=== PATIENT | female | born 1995 | race Caucasian/White ===

== ENCOUNTER 2016-09-14 12:50 | Emergency (ER) | payer OTHER ==
[~2016-09-14] VITALS: Ht 162.6 cm; Wt 77.3 kg
[~2016-09-14 12:50] MED LIST: MEDR10TA9 PO
[2016-09-14 12:54] VITALS: BP 114/77; PULSE 86; RESP 12; O2SAT 98
--- NOTE | 2016-09-14 13:03 | ED.REPORT ---
HPI-Extremity Problem Upper Date of Service Sep 14, 2016 ED Provider: Doc,Ed MD History of Present Illness: fall on elbow this am at home, had prior surgery in June at [facility] [place] . c/o pain. ras is primary care. has had chronic pain with elbow. normally takes tylenol, no help. 02/26. pain is entire arm Nursing Notes Stated Complaint: LEFT ARM PAIN Chief Complaint: Extremity Trauma Nursing Notes Reviewed: Yes Allergies: Coded Allergies: No Known Allergies (Verified Allergy, Unknown, 03/11/16) Scheduled Medroxyprogesterone (Medroxyprogesterone) 10 Mg Tablet 10 MG PO DAILY General Time Seen by MD: 12:57 Chief Complaint Elbow injury left Hx Obtained From: Patient Onset Occurred: 1 - 4 hours ago Symptom Duration: Since onset Severity: Current: Pain level 8 out of 10 Past Medical History Past Medical History nephrolithiasis ovarian cysts Past Surgical History Denies Smoking History Current Every Day Smoker Social History Alcohol Use: Denies alcohol use Drug Use: THC Other Social History: Good social support, Local resident Occupation no work or school, lives with boyfriend 09/14/2016 Ambulatory Status Independent Review of Systems Basic Review of Systems Eyes: Vision NL, No discharge Respiratory: No shortness of breath, No cough, No wheeze Hematologic: No bleeding, No bruising Physical Exam Initial Vital Signs Vital Signs (First) Date Time Temp Pulse Resp B/P Pulse Ox O2 Delivery O2 Flow Rate FiO2 09/14/16 12:54 36.6 86 12 114/77 98 Room Air Initial VS: Reviewed, Vital signs normal General/Constitutional: Well-developed, Well-nourished Head / Eyes: Atraumatic, Normocephalic, PERRL ENT: Mucous membranes moist, Conjunctiva normal, No scleral icterus Neck: Supple, Non-tender, Full range of motion Respiratory: Breath sounds normal, Clear to auscultation, No respiratory distress Cardiovascular: Regular rate & rhythm, Heart sounds normal, Intact distal pulses Abdomen / GI: Soft, Non-tender, No guarding, No rebound, No distention Back: No CVA tenderness Lymphatic: No lymphadenopathy Lower Extremities: Vascular intact, Neuro intact, No swelling, No tenderness Skin: Warm, Dry, No cyanosis Neurologic: Alert, Oriented, Nonfocal Psychiatric: Mood/affect normal, Behavior normal, Normal thought content General/Constitutional: Awake, Alert, No acute distress, Well appearing, Well developed, Well hydrated, Well nourished, Cooperative, Not toxic appearing Respiratory / Chest: Atraumatic, Breath sounds NL, Breath sounds = bilat, No respiratory distress Cardiovascular: Heart rate NL, Regular rhythm, Heart sounds NL, No gallop well healed scar on left elbow, limited range of motion Interpretation & Diagnostics X-Ray Interpretation Xray Interpretation: INDICATIONS: fall pain TECHNIQUE: 3 views of the elbow were acquired. COMPARISON: [facility], CR, XR ELBOW 2VW LT, 07/07/2016, 14:23. FINDINGS: Bones: Previous comminuted fracture in June of 2016 of the distal humerus and the fracture of the ulna have been fixed with plates medially and laterally along the humerus and dorsally along the ulna. Multiple screws are present. No acute bony abnormality is seen. No abnormal lucency about any of the screws is seen. Soft tissues: No elbow joint effusion. No suspicious soft tissue calcifications. IMPRESSION: No acute abnormality is found in the left elbow. Previous extensive surgery is noted involving the distal humerus and the olecranon. Re-Eval/Medical Decision Med Decision/Clinical Course Discussed with Dr. Joy. Patient wanting opiates from elbow pain. X-ray is negative for acute fracture, no sign of cellulitis or compartment syndrome. Patient last seen at [facility] 08/02/2016 ( last day opiates provided per [employer]) patient states removed cast herself Discharge & Departure Impression: Primary Impression: Left elbow pain Disposition: Home Additional Instructions: The x-ray does not show any sign of bony damage. Please establish in primary care. They can work with you on the chronic pain and they can refer you to physical therapy. As you are having some chronic pain issues, gapabentin may be helpful. Please try it. I am sorry you fell. You can also use ice 15 minutes on and 15 minutes off. Must have a cloth barrier between the skin and the ice. Referrals: HUMPHREY VARGAS MD (PCP) EDSupervising Provider for APC: Scott Joy MD copies to: HUMPHREY VARGAS MD, Sue ARNP Sep 14, 2016 13:03
[2016-09-14] MEDS ORDERED: Lidocaine-Epi-Tetracaine Solution 3 mL Syringe TOPICAL ONE (13:15)
[2016-09-14] MEDS ORDERED: Ketorolac 30 mg/mL 2 mL Inj IM ONE (13:15)
--- NOTE | 2016-09-14 14:09 | DRSVH ---
PROCEDURE: X-RAY LEFT ELBOW COMPLETE, MINIMUM THREE VIEWS ([id number]) INDICATIONS: fall pain TECHNIQUE: 3 views of the elbow were acquired. COMPARISON: [facility], CR, XR ELBOW 2VW LT, 07/07/2016, 14:23. FINDINGS: Bones: Previous comminuted fracture in June of 2016 of the distal humerus and the fracture of the ulna have been fixed with plates medially and laterally along the humerus and dorsally along the uln a. Multiple screws are present. No acute bony abnormality is seen. No abnormal lucency about any of t he screws is seen. Soft tissues: No elbow joint effusion. No suspicious soft tissue calcifications. IMPRESSION: No acute abnormality is found in the left elbow. Previous extensive surgery is noted involving the distal humerus and the olecranon. Dictated by: Ashwin Oleary M.D. on 09/14/2016 at 14:06 Approved by: Ashwin Oleary M.D. on 09/14/2016 at 14:08
[2016-09-14 14:27] VITALS: PULSE 67; RESP 16; O2SAT 97
[2016-09-14 14:29] VITALS: BP 114/77; PULSE 67; RESP 16; O2SAT 97
== END 2016-09-14 14:31 | disposition home or self-care (01) ==
LOC: SED 12:50
DX: M25.522 Pain in left elbow (principal); W18.39XA Other fall on same level, initial encounter; Y93.89 Activity, other specified; Y92.009 Unspecified place in unspecified non-institutional (private) residence as the place of occurrence of the external cause; Y99.8 Other external cause status; F17.200 Nicotine dependence, unspecified, uncomplicated
CPT/HCPCS: 73080; 96372; 99284; J1885

== ENCOUNTER 2017-01-07 10:32 | Emergency (ER) | payer OTHER ==
[~2017-01-07] VITALS: Ht 167.6 cm; Wt 150.0 kg
[2017-01-07 10:47] VITALS: BP 124/88; PULSE 80; RESP 16; O2SAT 100
--- NOTE | 2017-01-07 11:05 | ED.REPORT ---
HPI-Abd Pain F Under 40 Date of Service Jan 07, 2017 ED Provider: Frederic Vogt MD 21 y/o female with a hx of kidney stones presents to the ED complaining of of abdominal pain, onset 3 weeks ago . Associated sx include dysuria, chills and vomiting. The pt denies fever. She is unable to confirm hematuria as she just got off her period. The pt had similar sx two years ago when she was diagnosed with a kidney stone. Nursing Notes Stated Complaint: POSS UTI Chief Complaint: Female Abdominal Pain Nursing Notes Reviewed: Yes Allergies: Coded Allergies: No Known Allergies (Verified Allergy, Unknown, 01/07/17) Scheduled Cephalexin (Keflex) 500 Mg Capsule 500 MG PO QID Medroxyprogesterone (Medroxyprogesterone) 10 Mg Tablet 10 MG PO DAILY General Time Seen by MD: 11:03 Chief Complaint Abdominal pain Hx Obtained From: Patient Arrived By: Walk-in Sudden in Onset?: No Onset Occurred: More than a week ago... (3 weeks) Symptom Duration: Since onset Progression since Onset: Unchanged Location: : Abdomen lower Quality: Painful Radiation: : Does not radiate Severity: Current: Mild Severity: Maximum: Mild Recent Healthcare: No recent doctor visit Similar Sx Previous: Yes Past Medical History Past Medical History nephrolithiasis ovarian cysts Past Surgical History Denies Smoking History Current Every Day Smoker Social History Alcohol Use: Denies alcohol use Drug Use: THC Other Social History: Good social support, Local resident Occupation no work or school, lives with boyfriend 09/14/2016 Ambulatory Status Independent Review of Systems Constitutional: Reports: Chills GI: Reports: Abdominal pain, Vomiting Female: Reports: Dysuria Complete sys rev & neg: except as marked. Physical Exam Initial Vital Signs Vital Signs (First) Date Time Temp Pulse Resp B/P Pulse Ox O2 Delivery O2 Flow Rate FiO2 01/07/17 10:47 36.7 80 16 124/88 100 Room Air Initial VS: Reviewed, Vital signs normal Head / Eyes: Atraumatic, Normocephalic Neck: Supple, Non-tender, Full range of motion Extremities: Vascular intact, Neuro intact, No swelling, No tenderness Skin: Warm, Dry, No cyanosis Neurologic: Alert, Oriented, Nonfocal General/Constitutional: Awake, Alert, No acute distress, Cooperative Respiratory / Chest: Atraumatic, Breath sounds NL, No respiratory distress, No wheezing Cardiovascular: Heart rate NL, Regular rhythm, Pulses = bilaterally Abdomen: Atraumatic, Soft, No guarding, No rebound Tenderness/Guarding/Rebound: Positive: Tender suprapubic (mild) Back: Atraumatic, Full range of motion, Painless range of motion, No CVA tenderness Interpretation & Diagnostics Lab Results Interpretation Test 01/07/17 11:15 Urine Color Yellow (YELLOW) Urine Appearance Hazy (CLEAR,HAZY) Urine pH 6.0 (5.0-8.0) Urine Specific Loraine 1.020 (1.003-1.035) Urine Protein 30mg/dL (NEG,TRACE) Urine Glucose (UA) Negativemg/dL (NEGATIVE) Urine Ketones Negativemg/dL (NEGATIVE) Urine Occult Blood Trace (NEGATIVE) Urine Nitrite Negative (NEGATIVE) Urine Bilirubin Negative (NEGATIVE) Urine Urobilinogen Normalmg/dL (NORMAL) Urine Leukocyte Esterase Small (NEGATIVE) Urine RBC 3-10/hpf (0-2) Urine WBC 11-50/hpf (0-5) Urine Epithelial Cells Occasional/hpf (NONE-MOD) Urine Crystals None seen (NONE SEEN) Urine Bacteria Few/hpf (NONE-FEW) Urine Hyaline Casts None/lpf (NONE) Urine Granular Casts None seen (NONE SEEN) Urine Waxy Casts None seen (NONE SEEN) Urine Red Blood Cell Casts None seen (NONE SEEN) Urine White Blood Cell Casts None seen (NONE SEEN) Urine Mucus Present (None Seen) Urine Trichomonas None seen (NONE SEEN) Urine Yeast None (NONE SEEN) Urinalysis Comment None Urine Culture Reflexed Indicated Re-Eval/Medical Decision Med Decision/Clinical Course Med Decision/Clinical Course: 21-year-old female history kidney stones presenting with dysuria times several days. No sign symptoms pyelonephritis. Her vital signs are stable. She has no CVA tenderness. Urine suggestive of UTI. Patient declined any imaging to rule out kidney stone. She had no hydronephrosis on the bedside US. She prefers to follow up with primary doctor or return if any new or worsening pain, fevers, back pain, nausea vomiting, abdominal pain, any other new or worsening symptoms. Re-Evaluation/Progress : Time of Eval: 12:02 Re-Evaluation/Progress Note: Rechecked pt. Performed an ultrasound. Discussed lab results, diagnosis and options to be evaluated for a kidney stone or be discharged with antibiotics for UTI. The pt states she wants to be discharged with the antibiotics. F/U instructions and RTER warning given. All questions addressed. Counseled Regarding: Diagnosis, Lab results, Need for follow-up, When/why to return to ED Discharge & Departure Primary Impression: UTI (urinary tract infection) Disposition: Home Discharge Condition All VS Reviewed: Yes Condition: Stable Patient Instructions: Urinary Tract Infection in Women (ED) Additional Instructions: Thank you for entrusting us with your care today. You have opted for no imaging to rule out kidney stone. Take Keflex as prescribed. Please finish the full course of the antibiotic. Follow up with your Primary Care Provider for further evaluation as needed. Return to the Emergency Department in case of worsening pain, fever, vomiting or any new or concerning symptoms. Referrals: HUMPHREY VARGAS MD (PCP) Scribe Attestation Portions of this note were transcribed by Oc Quinn. I, , personally performed the history, physical exam and medical decision- making;I reviewed and confirmed the accuracy of the information in the transcribed note. Signed by Mimi Tyler. 01/07/17 12:20 copies to: HUMPHREY VARGAS MD, Ben M MD Jan 07, 2017 11:05 Oc Quinn Jan 07, 2017 11:10
[2017-01-07 11:56] LABS: APPEARANCE,URINE HAZY (CLEAR,HAZY); COLOR,URINE YELLOW (YELLOW); OCCULT BLOOD,URINE TRACE (NEGATIVE)
[2017-01-07 11:58] LABS: UROBILINOGEN,URINE NORMAL (NORMAL)
[2017-01-07] MEDS ORDERED: CEPH-512 PO (12:08)
[2017-01-07 12:15] VITALS: BP 118/87; PULSE 78; RESP 16; O2SAT 100
== END 2017-01-07 12:16 | disposition home or self-care (01) ==
LOC: SED 10:32
DX: N39.0 Urinary tract infection, site not specified (principal); F17.200 Nicotine dependence, unspecified, uncomplicated; Z87.442 Personal history of urinary calculi; Z87.42 Personal history of other diseases of the female genital tract